=== PATIENT | male | born 1955 | race Caucasian/White ===

== ENCOUNTER 2022-10-24 09:11 | Inpatient (IN) | payer MEDICARE ==
[~2022-10-24] VITALS: Ht 170.2 cm; Wt 106.8 kg
[2022-10-24] VITALS (20 sets, daily range): BP systolic 96–125; BP diastolic 53–70
[2022-10-24 09:48] LABS: BASOPHILS # (AUTO) 0.1 (0.0-0.1); BASOPHILS % 0.3 % (0.0-1.0); EOSINOPHILS # (AUTO) 0.3 (0.0-0.4); EOSINOPHILS % 1.4 % (0.0-6.0); HEMATOCRIT 33.6 % (38.2-49.6); HEMOGLOBIN 11.4 g/dL (14.0-18.0); LYMPHOCYTES # (AUTO) 2.1 (1.0-3.2); LYMPHOCYTES % 11.4 % (18.0-39.1); MEAN CORPUSCULAR HEMOGLOBIN 28.4 pg (28-32); MEAN CORPUSCULAR HGB CONC 33.9 g/dL (31-35); MEAN CORPUSCULAR VOLUME 83.8 fL (81-99); MONOCYTES # (AUTO) 1.8 (0.2-0.8); MONOCYTES % 10.1 % (4.4-11.3); NEUTROPHILS # (AUTO) 13.9 (2.1-6.9); NEUTROPHILS % 75.8 % (38.7-80.0); PLATELET COUNT 513 x10e3/uL (140-360); RED BLOOD COUNT 4.01 x10e6/uL (4.3-5.7); RED CELL DISTRIBUTION WIDTH 13.5 % (11.7-14.4)
[2022-10-24] MEDS ORDERED: SODIUM CHLORIDE 0.9% 1000ML 1,000 ML IV STA (10:04)
[2022-10-24 10:09] LABS: ALANINE AMINOTRANSFERASE 20 IU/L (0-55); ALBUMIN 3.2 g/dL (3.5-5.0); ALBUMIN/GLOBULIN RATIO 0.7 (0.8-2.0); ALKALINE PHOSPHATASE 71 IU/L (40-150); ANION GAP 24.7 mmol/L (8-16); BLOOD UREA NITROGEN 32 mg/dL (7-26); BUN/CREATININE RATIO 10 (6-25); CALCIUM 9.5 mg/dL (8.4-10.2); CARBON DIOXIDE 17 mmol/L (22-29); CHLORIDE 92 mmol/L (98-107); CREATINE KINASE 310 IU/L (30-200); GLUCOSE 103 mg/dL (74-118); MAGNESIUM 1.8 MG/DL (1.3-2.1); POTASSIUM 3.7 mmol/L (3.5-5.1); SODIUM 130 mmol/L (136-145)
[2022-10-24 10:11] LABS: INR 1.13
[2022-10-24 10:17] LABS: ABG HCO3 22 mmol/L (22-26); ABG PCO2 34 mmHg (35-45); ABG PH 7.41 (7.35-7.45); ABG PO2 69 mmHg (80-105); ABG TCO2 23
[2022-10-24 10:25] LABS: B-TYPE NATRIURETIC PEPTIDE2 < 10.0 pg/mL (0-100)
[2022-10-24 10:39] LABS: SALICYLATE < 5.0 mg/dL (0-30)
[2022-10-24] MEDS ORDERED: LACTATED RINGER'S 1,000 ML INJ SCH (11:45)
[2022-10-24] MEDS ORDERED: ONDANSETRON HCL INJ 2MG/ML 2ML 2 MG/ML VIAL IV PRN (12:00)
[2022-10-24] MEDS ORDERED: ACETAMINOPHEN 325 MG TAB PO PRN (12:00)
[2022-10-24 12:01] LABS: AMPHETAMINES SCREEN,URINE NEGATIVE (NEGATIVE); BENZODIAZEPINES SCREEN,URINE NEGATIVE (NEGATIVE); PHENCYCLIDINE SCREEN,URINE NEGATIVE (NEGATIVE)
[2022-10-24 12:03] LABS: CLARITY,URINE CLEAR (CLEAR); COLOR,URINE YELLOW (YELLOW); LEUKOCYTE ESTERASE ,URINE NEGATIVE (NEGATIVE); NITRITE,URINE NEGATIVE (NEGATIVE)
[2022-10-24 12:04] LABS: KETONES,URINE NEGATIVE (NEGATIVE); PROTEIN,URINE DIPSTICK 1+ (NEGATIVE); URINE UROBILINOGEN 0.2 mg/dL (0.2 - 1)
[2022-10-24] MEDS ORDERED: NALOXONE HCL INJ 0.4 MG/ML AMP ONE (12:07)
[2022-10-24] MEDS ORDERED: NALOXONE HCL INJ 0.4 MG/ML AMP IV ONE (12:08)
[2022-10-24 12:13] LABS: BACTERIA,URINE FEW /HPF; EPITHELIAL CELLS,URINE FEW /LPF
[2022-10-24] MEDS ORDERED: DEXTROSE 50% SYRINGE 50 ML IV ONE (12:29)
[2022-10-24] MEDS ORDERED: GLUCAGON FOR INJ 1 MG VIAL ONE (12:31)
[2022-10-24] MEDS ORDERED: FENTANYL 2000MCG/NS 250 250 ML ONE (12:51)
[2022-10-24] MEDS ORDERED: PROPOFOL IV EMULSION 10MG/ML 100 ML ONE (12:51)
[2022-10-24] MEDS: PROPOFOL IV EMULSION 10MG/ML 100 ML IV PRN ×3 (13:02→21:52)
[2022-10-24] MEDS ORDERED: ETOMIDATE 2 MG/ML 10 ML INJ IV ONE (13:35)
[2022-10-24] MEDS ORDERED: SUCCINYLCHOLINE CHLORIDE 20 MG/ML 10ML VIAL ONE (13:35)
[2022-10-24] MEDS: FENTANYL 2000MCG/NS 250 250 ML IV PRN (13:52)
[2022-10-24 15:20] LABS: ABG HCO3 22 mmol/L (22-26); ABG PCO2 34 mmHg (35-45); ABG PH 7.42 (7.35-7.45); ABG PO2 132 mmHg (80-105); ABG TCO2 23
[2022-10-24 15:38] LABS: ALBUMIN 2.5 g/dL (3.5-5.0); ALBUMIN/GLOBULIN RATIO 0.7 (0.8-2.0); ANION GAP 19.8 mmol/L (8-16); CALCIUM 8.4 mg/dL (8.4-10.2); CREATININE, SERUM 3.31 mg/dL (0.72-1.25); POTASSIUM 3.8 mmol/L (3.5-5.1)
[2022-10-24 15:55] LABS: CREATINE KINASE MB 3.5 ng/mL (0-5.0)
[2022-10-24] MEDS ORDERED: LEVOFLOXACIN750 MG (16:00)
[2022-10-24] MEDS ORDERED: AMLODIPINE BESY10 MG PO (16:00)
[2022-10-24] MEDS ORDERED: ATORVASTATIN CA20 MG PO (16:01)
[2022-10-24] MEDS ORDERED: FENOFIBRATE145 MG PO (16:03)
[2022-10-24] MEDS ORDERED: LISINOPRIL10 MG PO (16:14)
[2022-10-24] MEDS ORDERED: ULTRAM 50MG50 MG PO (16:14)
[2022-10-24] MEDS ORDERED: HYDROCHLOROTH12.5 MG PO (16:14)
[2022-10-24] MEDS ORDERED: TADALAFIL10 MG (16:14)
[2022-10-24] MEDS ORDERED: FLUOXETINE HCL20 M1 PO (16:14)
[2022-10-24] MEDS ORDERED: FLOMAX0.4 MG PO (16:14)
[2022-10-24 16:24] LABS: BODY FLUID APPEARANCE SL.CLOUDY; BODY FLUID COLOR RED; BODY FLUID TYPE PLEURAL
[2022-10-24] MEDS ORDERED: HYDRALAZINE HCL 20 MG/ML VIAL IV PRN (16:30)
[2022-10-24] MEDS: SODIUM BICARBONATE 8.4% 50 ML in SODIUM CHLORIDE 0.45% 1,000 ML IV SCH (16:33)
[2022-10-24 17:00] LABS: RBC,BODY FLUID 8281 cells/uL; WBC,BODY FLUID 490 cells/uL
[2022-10-24 18:17] LABS: EOSINOPHILS,BODY FLUID 16 %; LYMPHOCYTES,BODY FLUID 19 %; MONO/MACROPHG,BODY FLUID 56 %; NEUTROPHILS,BODY FLUID 9 %
[2022-10-25] VITALS (25 sets, daily range): BP systolic 89–170; BP diastolic 51–72
[2022-10-25] MEDS: SODIUM BICARBONATE 8.4% 50 ML in SODIUM CHLORIDE 0.45% 1,000 ML IV SCH (01:54)
[2022-10-25] MEDS: PROPOFOL IV EMULSION 10MG/ML 100 ML IV PRN ×5 (04:27→21:45)
[2022-10-25 06:39] LABS: BASOPHILS % 0.2 % (0.0-1.0); EOSINOPHILS # (AUTO) 0.3 (0.0-0.4); EOSINOPHILS % 2.5 % (0.0-6.0); HEMATOCRIT 28.5 % (38.2-49.6); HEMOGLOBIN 9.5 g/dL (14.0-18.0); LYMPHOCYTES # (AUTO) 0.9 (1.0-3.2); LYMPHOCYTES % 8.4 % (18.0-39.1); MEAN CORPUSCULAR HEMOGLOBIN 27.7 pg (28-32); MEAN CORPUSCULAR HGB CONC 33.3 g/dL (31-35); MEAN CORPUSCULAR VOLUME 83.1 fL (81-99); MONOCYTES % 8.7 % (4.4-11.3); NEUTROPHILS # (AUTO) 8.7 (2.1-6.9); NEUTROPHILS % 79.1 % (38.7-80.0); PLATELET COUNT 376 x10e3/uL (140-360); RED BLOOD COUNT 3.43 x10e6/uL (4.3-5.7); RED CELL DISTRIBUTION WIDTH 13.6 % (11.7-14.4)
[2022-10-25 07:02] LABS: ALBUMIN 2.3 g/dL (3.5-5.0); ALBUMIN/GLOBULIN RATIO 0.6 (0.8-2.0); CALCIUM 8.3 mg/dL (8.4-10.2); CREATININE, SERUM 1.8 mg/dL (0.72-1.25)
[2022-10-25 07:21] LABS: ABG HCO3 27 mmol/L (22-26); ABG PCO2 42 mmHg (35-45); ABG PH 7.42 (7.35-7.45); ABG PO2 96 mmHg (80-105); ABG TCO2 28
[2022-10-25] MEDS ORDERED: POTASSIUM CHLORIDE 20MEQ/100ML 200 ML IV ONE ×2 (07:30→20:00)
[2022-10-25 07:59] LABS: CREATINE KINASE MB 3.8 ng/mL (0-5.0)
[2022-10-25] MEDS: ATORVASTATIN 40 MG TAB PO SCH (09:00)
[2022-10-25] MEDS: TAMSULOSIN HCL 0.4 MG CAP PO SCH (09:00)
[2022-10-25] MEDS: FENOFIBRATE 145 MG TAB PO SCH (09:00)
[2022-10-25] MEDS: HEPARIN SOD (PORCINE) 5,000 UNIT/ML VIAL SC SCH ×2 (09:24→20:22)
[2022-10-25] MEDS: LACTATED RINGER'S 1,000 ML INJ SCH ×2 (09:24→19:16)
[2022-10-25] MEDS ORDERED: SODIUM CHLORIDE 0.9% 1000ML 1,000 ML ONE (09:40)
[2022-10-25] MEDS: FENTANYL 2000MCG/NS 250 250 ML IV PRN (10:02)
[2022-10-25] MEDS ORDERED: MIDAZOLAM HCL 2 MG/2 ML VIAL IV ONE ×2 (11:30→13:00)
[2022-10-25] MEDS ORDERED: MIDAZOLAM HCL 2 MG/2 ML VIAL IV STA (12:40)
[2022-10-25] MEDS: MIDAZOLAM HCL 2 MG/2 ML VIAL IV PRN (13:09)
[2022-10-25 18:01] LABS: ALBUMIN/GLOBULIN RATIO 0.6 (0.8-2.0); CREATININE, SERUM 1.48 mg/dL (0.72-1.25)
[2022-10-26] VITALS (47 sets, daily range): BP systolic 93–141; BP diastolic 45–73
[2022-10-26] MEDS: FENTANYL 2000MCG/NS 250 250 ML IV PRN ×2 (00:13→17:27)
[2022-10-26] MEDS: PROPOFOL IV EMULSION 10MG/ML 100 ML IV PRN ×7 (01:32→22:11)
[2022-10-26] MEDS: LACTATED RINGER'S 1,000 ML INJ SCH (04:59)
[2022-10-26 06:30] LABS: BASOPHILS % 0.3 % (0.0-1.0); EOSINOPHILS # (AUTO) 0.3 (0.0-0.4); HEMATOCRIT 27.3 % (38.2-49.6); HEMOGLOBIN 8.9 g/dL (14.0-18.0); LYMPHOCYTES # (AUTO) 1.2 (1.0-3.2); LYMPHOCYTES % 7.9 % (18.0-39.1); MEAN CORPUSCULAR HEMOGLOBIN 27.8 pg (28-32); MEAN CORPUSCULAR HGB CONC 32.6 g/dL (31-35); MEAN CORPUSCULAR VOLUME 85.3 fL (81-99); MONOCYTES % 6.5 % (4.4-11.3); NEUTROPHILS # (AUTO) 12.2 (2.1-6.9); NEUTROPHILS % 81.9 % (38.7-80.0); PLATELET COUNT 368 x10e3/uL (140-360); RED CELL DISTRIBUTION WIDTH 14.1 % (11.7-14.4)
[2022-10-26 06:55] LABS: ALBUMIN 1.9 g/dL (3.5-5.0); ALBUMIN/GLOBULIN RATIO 0.5 (0.8-2.0); ANION GAP 15.1 mmol/L (8-16); CALCIUM 8.5 mg/dL (8.4-10.2); CREATININE, SERUM 1.08 mg/dL (0.72-1.25); POTASSIUM 4.1 mmol/L (3.5-5.1)
[2022-10-26 08:37] LABS: ABG PCO2 49 mmHg (35-45); ABG PH 7.33 (7.35-7.45); ABG PO2 67 mmHg (80-105)
[2022-10-26 08:38] LABS: ABG HCO3 26 mmol/L (22-26); ABG TCO2 27
[2022-10-26] MEDS: FENOFIBRATE 145 MG TAB PO SCH (09:00)
[2022-10-26] MEDS: ATORVASTATIN 40 MG TAB PO SCH (09:00)
[2022-10-26] MEDS: TAMSULOSIN HCL 0.4 MG CAP PO SCH (09:00)
[2022-10-26] MEDS ORDERED: SODIUM CHLORIDE 0.9% 1000ML 1,000 ML ONE (11:03)
[2022-10-26] MEDS ORDERED: SODIUM CHLORIDE 0.9% 1000ML 1,000 ML IV ONE (21:00)
[2022-10-27] VITALS (83 sets, daily range): BP systolic 91–142; BP diastolic 48–73
[2022-10-27] MEDS: PROPOFOL IV EMULSION 10MG/ML 100 ML IV PRN ×7 (01:13→21:24)
[2022-10-27] MEDS: VASOPRESSIN 60 UNIT in DEXTROSE 5% 50ML 57 ML IV SCH (02:00)
[2022-10-27 06:42] LABS: BASOPHILS # (AUTO) 0.1 (0.0-0.1); BASOPHILS % 0.4 % (0.0-1.0); EOSINOPHILS # (AUTO) 0.4 (0.0-0.4); EOSINOPHILS % 2.2 % (0.0-6.0); HEMATOCRIT 26.6 % (38.2-49.6); HEMOGLOBIN 8.3 g/dL (14.0-18.0); LYMPHOCYTES % 5.4 % (18.0-39.1); MEAN CORPUSCULAR HEMOGLOBIN 27.5 pg (28-32); MEAN CORPUSCULAR HGB CONC 31.2 g/dL (31-35); MEAN CORPUSCULAR VOLUME 88.1 fL (81-99); MONOCYTES # (AUTO) 1.2 (0.2-0.8); MONOCYTES % 6.7 % (4.4-11.3); NEUTROPHILS # (AUTO) 14.5 (2.1-6.9); NEUTROPHILS % 82.4 % (38.7-80.0); PLATELET COUNT 394 x10e3/uL (140-360); RED BLOOD COUNT 3.02 x10e6/uL (4.3-5.7); RED CELL DISTRIBUTION WIDTH 14.6 % (11.7-14.4)
[2022-10-27 07:05] LABS: ALBUMIN 1.8 g/dL (3.5-5.0); ALBUMIN/GLOBULIN RATIO 0.4 (0.8-2.0); ANION GAP 17.3 mmol/L (8-16); CALCIUM 8.2 mg/dL (8.4-10.2); CREATININE, SERUM 2.18 mg/dL (0.72-1.25); POTASSIUM 4.3 mmol/L (3.5-5.1)
[2022-10-27 08:22] LABS: ABG PCO2 41 mmHg (35-45); ABG PH 7.37 (7.35-7.45)
[2022-10-27 08:23] LABS: ABG HCO3 24 mmol/L (22-26); ABG PO2 102 mmHg (80-105); ABG TCO2 25
[2022-10-27] MEDS: ALBUMIN 25% 25GM 100ML 100 ML IV SCH ×3 (08:29→21:00)
[2022-10-27] MEDS ORDERED: ALBUMIN 25% 25GM 100ML 0.25 GM/ML BTL IV SCH (08:30)
[2022-10-27] MEDS: FENOFIBRATE 145 MG TAB PO SCH (08:41)
[2022-10-27] MEDS: FAMOTIDINE 20 MG/2 ML VIAL IV SCH ×2 (08:41→16:40)
[2022-10-27] MEDS: DOCUSATE SODIUM LIQD 100 MG/10 ML UDC NG SCH (08:41)
[2022-10-27] MEDS: ATORVASTATIN 40 MG TAB PO SCH (08:42)
[2022-10-27] MEDS: TAMSULOSIN HCL 0.4 MG CAP PO SCH (08:44)
[2022-10-27] MEDS ORDERED: FUROSEMIDE INJ 10 MG/ML 4 ML VIAL IV ONE (09:00)
[2022-10-27] MEDS: FENTANYL 2000MCG/NS 250 250 ML IV PRN ×2 (09:51→21:24)
[2022-10-27] MEDS: HEPARIN SOD (PORCINE) 5,000 UNIT/ML VIAL SC SCH ×2 (09:56→21:23)
[2022-10-27] MEDS ORDERED: SODIUM CHLORIDE 0.9% 1000ML 1,000 ML IV ONE (13:30)
[2022-10-27] MEDS: CEFTRIAXONE 2 GM in SODIUM CHLORIDE 0.9% 100 ML IV SCH (13:33)
[2022-10-27 14:44] LABS: HIV 1&2 AB SCREEN NON-REACTIVE (NONREACTIVE)
[2022-10-27] MEDS ORDERED: ALBUMIN 5% 0.05 GM/ML BTL IV ONE (21:00)
[2022-10-27] MEDS ORDERED: SODIUM CHLORIDE 0.9% IV ONE (23:45)
[2022-10-27] MEDS ORDERED: ALBUMIN IV ONE (23:45)
[2022-10-28] VITALS (66 sets, daily range): BP systolic 102–158; BP diastolic 48–65
[2022-10-28] MEDS: PROPOFOL IV EMULSION 10MG/ML 100 ML IV PRN ×7 (01:22→21:44)
[2022-10-28] MEDS ORDERED: BUMETANIDE INJ 0.25MG/ML 4ML VIAL IV ONE ×3 (02:00→16:45)
[2022-10-28] MEDS: VASOPRESSIN 60 UNIT in DEXTROSE 5% 50ML 57 ML IV SCH (02:00)
[2022-10-28 06:12] LABS: BASOPHILS % 0.1 % (0.0-1.0); EOSINOPHILS # (AUTO) 0.2 (0.0-0.4); EOSINOPHILS % 1.6 % (0.0-6.0); HEMATOCRIT 23.9 % (38.2-49.6); HEMOGLOBIN 7.5 g/dL (14.0-18.0); LYMPHOCYTES # (AUTO) 0.8 (1.0-3.2); LYMPHOCYTES % 6.1 % (18.0-39.1); MEAN CORPUSCULAR HEMOGLOBIN 27.9 pg (28-32); MEAN CORPUSCULAR HGB CONC 31.4 g/dL (31-35); MEAN CORPUSCULAR VOLUME 88.8 fL (81-99); MONOCYTES # (AUTO) 0.4 (0.2-0.8); MONOCYTES % 3.3 % (4.4-11.3); NEUTROPHILS # (AUTO) 11.4 (2.1-6.9); NEUTROPHILS % 84.5 % (38.7-80.0); PLATELET COUNT 361 x10e3/uL (140-360); RED BLOOD COUNT 2.69 x10e6/uL (4.3-5.7); RED CELL DISTRIBUTION WIDTH 15.3 % (11.7-14.4)
[2022-10-28 06:37] LABS: ALBUMIN 2.5 g/dL (3.5-5.0); ALBUMIN/GLOBULIN RATIO 0.7 (0.8-2.0); ANION GAP 18.2 mmol/L (8-16); CALCIUM 8.5 mg/dL (8.4-10.2); CREATININE, SERUM 3.53 mg/dL (0.72-1.25); POTASSIUM 4.2 mmol/L (3.5-5.1)
[2022-10-28] MEDS ORDERED: SODIUM CHLORIDE 0.9% 250ML 250 ML IV PRN (07:00)
[2022-10-28 09:01] LABS: ABG PCO2 48 mmHg (35-45); ABG PH 7.28 (7.35-7.45)
[2022-10-28 09:02] LABS: ABG HCO3 22 mmol/L (22-26); ABG PO2 81 mmHg (80-105); ABG TCO2 24
[2022-10-28] MEDS: DOCUSATE SODIUM LIQD 100 MG/10 ML UDC NG SCH (09:48)
[2022-10-28] MEDS: HEPARIN SOD (PORCINE) 5,000 UNIT/ML VIAL SC SCH ×2 (09:48→20:18)
[2022-10-28] MEDS: TAMSULOSIN HCL 0.4 MG CAP PO SCH (09:48)
[2022-10-28] MEDS: FAMOTIDINE 20 MG/2 ML VIAL IV SCH ×2 (09:48→17:32)
[2022-10-28] MEDS: FENOFIBRATE 145 MG TAB PO SCH (09:48)
[2022-10-28] MEDS: ATORVASTATIN 40 MG TAB PO SCH (09:49)
[2022-10-28] MEDS ORDERED: SODIUM CHLORIDE 0.9% 250ML 250 ML ONE (11:24)
[2022-10-28] MEDS: BUMETANIDE 10 MG in SODIUM CHLORIDE 0.9% 60 ML IV SCH ×2 (14:00→20:16)
[2022-10-28] MEDS: SODIUM BICARBONATE 8.4% SYRING 100 ML in DEXTROSE 5% 1,000 ML IV SCH (14:00)
[2022-10-28] MEDS: CEFTRIAXONE 2 GM in SODIUM CHLORIDE 0.9% 100 ML IV SCH (17:32)
[2022-10-28] MEDS: FENTANYL 2000MCG/NS 250 250 ML IV PRN (18:28)
[2022-10-28] MEDS: MIDAZOLAM HCL 2 MG/2 ML VIAL IV PRN (20:16)
[2022-10-29] VITALS (92 sets, daily range): BP systolic 95–171; BP diastolic 47–90
[2022-10-29 00:25] LABS: % IRON SATURATION 13 % (15-50); IRON 17 ug/dL (65-175); TOTAL IRON BINDING CAPACITY 136 ug/dL (261-478); TRANSFERRIN 97 mg/dL (174-364)
[2022-10-29] MEDS: PROPOFOL IV EMULSION 10MG/ML 100 ML IV PRN ×7 (00:43→20:53)
[2022-10-29] MEDS: BUMETANIDE 10 MG in SODIUM CHLORIDE 0.9% 60 ML IV SCH ×4 (01:45→18:24)
[2022-10-29] MEDS: VASOPRESSIN 60 UNIT in DEXTROSE 5% 50ML 57 ML IV SCH (02:00)
[2022-10-29] MEDS: METOCLOPRAMIDE HCL 10 MG/2ML VIAL IV SCH ×3 (05:19→17:29)
[2022-10-29] MEDS: MIDAZOLAM HCL 2 MG/2 ML VIAL IV PRN (05:20)
[2022-10-29 06:02] LABS: BASOPHILS % 0.3 % (0.0-1.0); EOSINOPHILS # (AUTO) 0.4 (0.0-0.4); EOSINOPHILS % 2.5 % (0.0-6.0); HEMATOCRIT 28.8 % (38.2-49.6); HEMOGLOBIN 9.2 g/dL (14.0-18.0); LYMPHOCYTES # (AUTO) 0.7 (1.0-3.2); LYMPHOCYTES % 4.6 % (18.0-39.1); MEAN CORPUSCULAR HEMOGLOBIN 27.8 pg (28-32); MEAN CORPUSCULAR HGB CONC 31.9 g/dL (31-35); MONOCYTES # (AUTO) 0.6 (0.2-0.8); MONOCYTES % 4.4 % (4.4-11.3); NEUTROPHILS # (AUTO) 11.7 (2.1-6.9); NEUTROPHILS % 82.3 % (38.7-80.0); PLATELET COUNT 366 x10e3/uL (140-360); RED BLOOD COUNT 3.31 x10e6/uL (4.3-5.7); RED CELL DISTRIBUTION WIDTH 15.2 % (11.7-14.4)
[2022-10-29 06:37] LABS: ALBUMIN 2.1 g/dL (3.5-5.0); ALBUMIN/GLOBULIN RATIO 0.5 (0.8-2.0); ANION GAP 19.2 mmol/L (8-16); CALCIUM 8.4 mg/dL (8.4-10.2); CREATININE, SERUM 3.9 mg/dL (0.72-1.25); POTASSIUM 4.2 mmol/L (3.5-5.1)
[2022-10-29 06:39] LABS: ABG HCO3 23 mmol/L (22-26); ABG PCO2 48 mmHg (35-45); ABG PH 7.29 (7.35-7.45); ABG PO2 71 mmHg (80-105); ABG TCO2 25
[2022-10-29] MEDS ORDERED: SODIUM BICARBONATE 8.4% SYRING 0 ML ONE (08:37)
[2022-10-29] MEDS: FENOFIBRATE 145 MG TAB PO SCH (09:22)
[2022-10-29] MEDS: FAMOTIDINE 20 MG/2 ML VIAL IV SCH ×2 (09:22→17:29)
[2022-10-29] MEDS: TAMSULOSIN HCL 0.4 MG CAP PO SCH (09:22)
[2022-10-29] MEDS: DOCUSATE SODIUM LIQD 100 MG/10 ML UDC NG SCH (09:22)
[2022-10-29] MEDS: HEPARIN SOD (PORCINE) 5,000 UNIT/ML VIAL SC SCH ×2 (09:23→21:22)
[2022-10-29] MEDS: SODIUM BICARBONATE 8.4% SYRING 100 ML in DEXTROSE 5% 1,000 ML IV SCH (09:23)
[2022-10-29] MEDS: FENTANYL 2000MCG/NS 250 250 ML IV PRN ×2 (10:17→21:22)
[2022-10-29] MEDS: IRON SUCROSE 100 MG in SODIUM CHLORIDE 0.9% 100 ML IV SCH (10:41)
[2022-10-29 11:52] LABS: ABG PH 7.36 (7.35-7.45)
[2022-10-29 11:53] LABS: ABG HCO3 23 mmol/L (22-26); ABG PCO2 40 mmHg (35-45); ABG PO2 55 mmHg (80-105); ABG TCO2 24
[2022-10-29] MEDS ORDERED: SODIUM CHLORIDE 0.9% 0 ML ONE (12:59)
[2022-10-29] MEDS: CEFTRIAXONE 2 GM in SODIUM CHLORIDE 0.9% 100 ML IV SCH (13:03)
[2022-10-29] MEDS ORDERED: HEPARIN SOD (PORCINE) 1000 UNIT/ML 30ML ONE (20:38)
[2022-10-29] MEDS ORDERED: HEPARIN SOD (PORCINE) 1000 UNIT/ML SDV ONE (20:38)
[2022-10-30] VITALS (90 sets, daily range): BP systolic 95–181; BP diastolic 46–84
[2022-10-30] MEDS: PROPOFOL IV EMULSION 10MG/ML 100 ML IV PRN ×8 (00:14→20:05)
[2022-10-30] MEDS: BUMETANIDE 10 MG in SODIUM CHLORIDE 0.9% 60 ML IV SCH ×6 (00:16→21:46)
[2022-10-30] MEDS: METOCLOPRAMIDE HCL 10 MG/2ML VIAL IV SCH ×4 (00:17→17:39)
[2022-10-30] MEDS: VASOPRESSIN 60 UNIT in DEXTROSE 5% 50ML 57 ML IV SCH (02:00)
[2022-10-30 05:39] LABS: BASOPHILS % 0.2 % (0.0-1.0); EOSINOPHILS # (AUTO) 0.2 (0.0-0.4); EOSINOPHILS % 1.8 % (0.0-6.0); HEMATOCRIT 27.8 % (38.2-49.6); HEMOGLOBIN 9.1 g/dL (14.0-18.0); LYMPHOCYTES # (AUTO) 0.5 (1.0-3.2); LYMPHOCYTES % 4.1 % (18.0-39.1); MEAN CORPUSCULAR HEMOGLOBIN 28.1 pg (28-32); MEAN CORPUSCULAR HGB CONC 32.7 g/dL (31-35); MEAN CORPUSCULAR VOLUME 85.8 fL (81-99); MONOCYTES # (AUTO) 0.7 (0.2-0.8); MONOCYTES % 5.5 % (4.4-11.3); NEUTROPHILS # (AUTO) 9.8 (2.1-6.9); NEUTROPHILS % 81.7 % (38.7-80.0); PLATELET COUNT 368 x10e3/uL (140-360); RED BLOOD COUNT 3.24 x10e6/uL (4.3-5.7)
[2022-10-30 05:59] LABS: ALBUMIN 1.9 g/dL (3.5-5.0); ALBUMIN/GLOBULIN RATIO 0.4 (0.8-2.0); ANION GAP 19.7 mmol/L (8-16); CALCIUM 8.1 mg/dL (8.4-10.2); CREATININE, SERUM 3.41 mg/dL (0.72-1.25); POTASSIUM 3.7 mmol/L (3.5-5.1)
[2022-10-30 06:45] LABS: ABG HCO3 26 mmol/L (22-26); ABG PCO2 47 mmHg (35-45); ABG PH 7.34 (7.35-7.45); ABG PO2 85 mmHg (80-105); ABG TCO2 27
[2022-10-30] MEDS: SODIUM BICARBONATE 8.4% SYRING 100 ML in DEXTROSE 5% 1,000 ML IV SCH ×2 (07:29→21:42)
[2022-10-30] MEDS: IRON SUCROSE 100 MG in SODIUM CHLORIDE 0.9% 100 ML IV SCH (07:30)
[2022-10-30] MEDS: FENTANYL 2000MCG/NS 250 250 ML IV PRN ×2 (07:31→17:40)
[2022-10-30] MEDS ORDERED: HEPARIN SOD (PORCINE) 1000 UNIT/ML SDV IV PRN ×3 (09:00→10:15)
[2022-10-30] MEDS ORDERED: HEPARIN SOD (PORCINE) 1000 UNIT/ML SDV ONE (09:17)
[2022-10-30] MEDS ORDERED: ALBUMIN 25% 12.5GM 50ML 50 ML IV ONE (09:18)
[2022-10-30] MEDS ORDERED: SODIUM CHLORIDE 0.9% 1000ML 2,000 ML ONE (09:19)
[2022-10-30] MEDS: DOCUSATE SODIUM LIQD 100 MG/10 ML UDC NG SCH (09:29)
[2022-10-30] MEDS: FENOFIBRATE 145 MG TAB PO SCH (09:29)
[2022-10-30] MEDS: TAMSULOSIN HCL 0.4 MG CAP PO SCH (09:30)
[2022-10-30] MEDS: FAMOTIDINE 20 MG/2 ML VIAL IV SCH ×2 (09:30→17:39)
[2022-10-30] MEDS: HEPARIN SOD (PORCINE) 5,000 UNIT/ML VIAL SC SCH ×2 (09:31→21:42)
[2022-10-30] MEDS ORDERED: ALBUMIN 25% 12.5GM 0.25 GM/ML BTL IV PRN (10:15)
[2022-10-30 10:52] LABS: BAND NEUTROPHILS % (MANUAL) 2 %; EOSINOPHILS % (MANUAL) 2 % (0-7); LYMPHOCYTES % (MANUAL) 9 % (19-48); MONOCYTES % (MANUAL) 9 % (3.4-9.0); NEUTROPHILS % (MANUAL) 78 % (40-74); PLATELET ESTIMATE ADEQUATE; PLATELET MORPHOLOGY COMMENT NORMAL
[2022-10-30] MEDS: CEFTRIAXONE 2 GM in SODIUM CHLORIDE 0.9% 100 ML IV SCH (12:21)
[2022-10-30] MEDS ORDERED: VECURONIUM BROMIDE FOR INJ 20 MG VIAL IV STA (17:21)
[2022-10-30] MEDS: MIDAZOLAM HCL 2 MG/2 ML VIAL IV PRN (19:34)
[2022-10-31] VITALS (46 sets, daily range): BP systolic 100–182; BP diastolic 50–87
[2022-10-31] MEDS: METOCLOPRAMIDE HCL 10 MG/2ML VIAL IV SCH ×5 (01:10→23:59)
[2022-10-31] MEDS: BUMETANIDE 10 MG in SODIUM CHLORIDE 0.9% 60 ML IV SCH ×6 (01:11→23:12)
[2022-10-31] MEDS: VASOPRESSIN 60 UNIT in DEXTROSE 5% 50ML 57 ML IV SCH (02:00)
[2022-10-31] MEDS: PROPOFOL IV EMULSION 10MG/ML 100 ML IV PRN ×8 (02:40→20:54)
[2022-10-31] MEDS: FENTANYL 2000MCG/NS 250 250 ML IV PRN ×3 (02:46→23:17)
[2022-10-31 06:33] LABS: BASOPHILS # (AUTO) 0.1 (0.0-0.1); BASOPHILS % 0.4 % (0.0-1.0); EOSINOPHILS # (AUTO) 0.3 (0.0-0.4); EOSINOPHILS % 1.7 % (0.0-6.0); HEMATOCRIT 31.8 % (38.2-49.6); HEMOGLOBIN 10.2 g/dL (14.0-18.0); LYMPHOCYTES # (AUTO) 0.9 (1.0-3.2); LYMPHOCYTES % 4.2 % (18.0-39.1); MEAN CORPUSCULAR HEMOGLOBIN 28.4 pg (28-32); MEAN CORPUSCULAR HGB CONC 32.1 g/dL (31-35); MEAN CORPUSCULAR VOLUME 88.6 fL (81-99); MONOCYTES # (AUTO) 1.2 (0.2-0.8); MONOCYTES % 5.9 % (4.4-11.3); NEUTROPHILS # (AUTO) 16.3 (2.1-6.9); NEUTROPHILS % 79.7 % (38.7-80.0); PLATELET COUNT 448 x10e3/uL (140-360); RED BLOOD COUNT 3.59 x10e6/uL (4.3-5.7); RED CELL DISTRIBUTION WIDTH 14.9 % (11.7-14.4)
[2022-10-31 07:15] LABS: ABG HCO3 33 mmol/L (22-26); ABG PCO2 46 mmHg (35-45); ABG PH 7.46 (7.35-7.45); ABG PO2 69 mmHg (80-105); ABG TCO2 34
[2022-10-31 07:29] LABS: ALBUMIN 2.2 g/dL (3.5-5.0); ALBUMIN/GLOBULIN RATIO 0.4 (0.8-2.0); ANION GAP 21.5 mmol/L (8-16); CALCIUM 8.9 mg/dL (8.4-10.2); CREATININE, SERUM 2.01 mg/dL (0.72-1.25); POTASSIUM 3.5 mmol/L (3.5-5.1)
[2022-10-31] MEDS: FENOFIBRATE 145 MG TAB PO SCH (08:18)
[2022-10-31] MEDS: TAMSULOSIN HCL 0.4 MG CAP PO SCH (08:18)
[2022-10-31] MEDS: IRON SUCROSE 100 MG in SODIUM CHLORIDE 0.9% 100 ML IV SCH (08:18)
[2022-10-31] MEDS: DOCUSATE SODIUM LIQD 100 MG/10 ML UDC NG SCH (08:18)
[2022-10-31] MEDS: FAMOTIDINE 20 MG/2 ML VIAL IV SCH ×2 (08:19→16:07)
[2022-10-31] MEDS: HEPARIN SOD (PORCINE) 5,000 UNIT/ML VIAL SC SCH ×2 (08:20→20:07)
[2022-10-31] MEDS ORDERED: Vancomycin IV 1 GM in SODIUM CHLORIDE 0.9% 250ML 250 ML IV ONE (08:30)
[2022-10-31 09:05] LABS: EOSINOPHILS % (MANUAL) 2 % (0-7); LYMPHOCYTES % (MANUAL) 6 % (19-48); METAMYELOCYTES % (MANUAL) 2 % (0-0); MONOCYTES % (MANUAL) 6 % (3.4-9.0); MYELOCYTES % (MANUAL) 3 % (0-0); NEUTROPHILS % (MANUAL) 81 % (40-74); PLATELET ESTIMATE ADEQUATE; PLATELET MORPHOLOGY COMMENT NORMAL; RBC MORPHOLOGY COMMENT NORMAL
[2022-10-31] MEDS ORDERED: SODIUM CHLORIDE 0.9% 1000ML 1,000 ML ONE (13:36)
[2022-10-31 16:15] LABS: ABG PH 7.42 (7.35-7.45)
[2022-10-31 16:16] LABS: ABG HCO3 33 mmol/L (22-26); ABG PCO2 51 mmHg (35-45); ABG PO2 106 mmHg (80-105); ABG TCO2 35
[2022-10-31] MEDS: SODIUM BICARBONATE 8.4% SYRING 100 ML in DEXTROSE 5% 1,000 ML IV SCH (21:22)
[2022-11-01] VITALS (39 sets, daily range): BP systolic 88–140; BP diastolic 42–82
[2022-11-01] MEDS: VASOPRESSIN 60 UNIT in DEXTROSE 5% 50ML 57 ML IV SCH (01:09)
[2022-11-01] MEDS: PROPOFOL IV EMULSION 10MG/ML 100 ML IV PRN ×6 (03:01→21:47)
[2022-11-01] MEDS ORDERED: MAGNESIUM HYDROXIDE 30 ML UDC PO STA (03:18)
[2022-11-01] MEDS: BUMETANIDE 10 MG in SODIUM CHLORIDE 0.9% 60 ML IV SCH ×3 (04:33→15:01)
[2022-11-01] MEDS: METOCLOPRAMIDE HCL 10 MG/2ML VIAL IV SCH ×3 (05:24→17:31)
[2022-11-01 06:42] LABS: BASOPHILS # (AUTO) 0.1 (0.0-0.1); BASOPHILS % 0.2 % (0.0-1.0); EOSINOPHILS # (AUTO) 0.6 (0.0-0.4); EOSINOPHILS % 3.1 % (0.0-6.0); HEMATOCRIT 27.8 % (38.2-49.6); LYMPHOCYTES # (AUTO) 0.9 (1.0-3.2); LYMPHOCYTES % 4.5 % (18.0-39.1); MEAN CORPUSCULAR HEMOGLOBIN 28.6 pg (28-32); MEAN CORPUSCULAR HGB CONC 32.4 g/dL (31-35); MEAN CORPUSCULAR VOLUME 88.3 fL (81-99); MONOCYTES % 5.1 % (4.4-11.3); NEUTROPHILS # (AUTO) 15.8 (2.1-6.9); NEUTROPHILS % 78.1 % (38.7-80.0); PLATELET COUNT 358 x10e3/uL (140-360); RED BLOOD COUNT 3.15 x10e6/uL (4.3-5.7); RED CELL DISTRIBUTION WIDTH 15.3 % (11.7-14.4)
[2022-11-01 07:19] LABS: ANION GAP 15.4 mmol/L (8-16); CALCIUM 8.8 mg/dL (8.4-10.2); CREATININE, SERUM 2.46 mg/dL (0.72-1.25); POTASSIUM 3.4 mmol/L (3.5-5.1)
[2022-11-01 07:31] LABS: ALBUMIN 1.7 g/dL (3.5-5.0)
[2022-11-01 07:33] LABS: ALBUMIN/GLOBULIN RATIO 0.3 (0.8-2.0)
[2022-11-01 08:26] LABS: ABG HCO3 34 mmol/L (22-26); ABG PCO2 53 mmHg (35-45); ABG PH 7.41 (7.35-7.45); ABG PO2 133 mmHg (80-105); ABG TCO2 36
[2022-11-01] MEDS: FENOFIBRATE 145 MG TAB PO SCH (08:40)
[2022-11-01] MEDS: IRON SUCROSE 100 MG in SODIUM CHLORIDE 0.9% 100 ML IV SCH (08:40)
[2022-11-01] MEDS: DOCUSATE SODIUM LIQD 100 MG/10 ML UDC NG SCH (08:41)
[2022-11-01] MEDS: TAMSULOSIN HCL 0.4 MG CAP PO SCH (08:41)
[2022-11-01] MEDS ORDERED: FOLIC ACID 1 MG TAB PO SCH (09:00)
[2022-11-01 09:29] LABS: EOSINOPHILS % (MANUAL) 2 % (0-7); LYMPHOCYTES % (MANUAL) 3 % (19-48); MONOCYTES % (MANUAL) 9 % (3.4-9.0); NEUTROPHILS % (MANUAL) 86 % (40-74); PLATELET ESTIMATE ADEQUATE; PLATELET MORPHOLOGY COMMENT NORMAL; RBC MORPHOLOGY COMMENT NORMAL
[2022-11-01] MEDS: FENTANYL 2000MCG/NS 250 250 ML IV PRN (10:14)
[2022-11-01] MEDS: ALBUTEROL SULF 0.083% NEB SOLN 3 ML NEB NEB PRN (11:05)
[2022-11-01] MEDS ORDERED: METHYLPREDNISOLONE SOD SUCC 40 MG/ML VIAL 1ML IV SCH (14:00)
[2022-11-01 14:52] LABS: ABG HCO3 31 mmol/L (22-26); ABG PCO2 45 mmHg (35-45); ABG PH 7.45 (7.35-7.45); ABG PO2 67 mmHg (80-105); ABG TCO2 33
[2022-11-01] MEDS ORDERED: SODIUM CHLORIDE 0.9% 1000ML 2,000 ML ONE (16:02)
[2022-11-01] MEDS ORDERED: FENTANYL 2000MCG/NS 250 250 ML IV PRN (16:45)
[2022-11-01] MEDS ORDERED: SODIUM CHLORIDE 0.9% 1000ML 2,000 ML IV PRN (17:00)
[2022-11-01] MEDS ORDERED: SODIUM BICARBONATE 8.4% SYRING 100 ML in DEXTROSE 5% 1,000 ML IV SCH (19:30)
[2022-11-01] MEDS ORDERED: FAMOTIDINE 20 MG/2 ML VIAL IV SCH (21:00)
[2022-11-02] VITALS (9 sets, daily range): BP systolic 90–155; BP diastolic 45–74
[2022-11-02] MEDS: MIDAZOLAM HCL 2 MG/2 ML VIAL IV PRN (00:46)
[2022-11-02] MEDS: BUMETANIDE 10 MG in SODIUM CHLORIDE 0.9% 60 ML IV SCH (00:52)
[2022-11-02] MEDS: METOCLOPRAMIDE HCL 10 MG/2ML VIAL IV SCH (00:56)
[2022-11-02] MEDS: ALBUTEROL SULF 0.083% NEB SOLN 3 ML NEB NEB PRN (01:15)
[2022-11-02] MEDS ORDERED: VECURONIUM BROMIDE FOR INJ 20 MG VIAL IV STA (02:59)
[2022-11-02] MEDS ORDERED: VECURONIUM BROMIDE FOR INJ 20 MG VIAL ONE (03:03)
[2022-11-02] MEDS: PROPOFOL IV EMULSION 10MG/ML 100 ML IV PRN (03:15)
[2022-11-02] MEDS ORDERED: ROCURONIUM 1250MG/NS 250 250 ML IV PRN (04:00)
[2022-11-02] MEDS ORDERED: ATROPINE SULFATE 0.1 MG/ML 10ML SYR ONE (04:02)
[2022-11-02 04:51] LABS: ABG HCO3 23 mmol/L (22-26); ABG PCO2 61 mmHg (35-45); ABG PH 7.18 (7.35-7.45); ABG PO2 68 mmHg (80-105)
[2022-11-02 04:52] LABS: ABG TCO2 25
[2022-11-02] MEDS ORDERED: EPINEPHRINE HCL SYRINGE ONE (12:19)
[2022-11-02] MEDS ORDERED: SODIUM BICARBONATE 8.4% INJ 50 ML SYR ONE (12:19)
== END 2022-11-02 09:43 | disposition expired | DRG 871 ==
LOC: ER 09:17 → ERHOLD 11:18 → ICU 14:30
PROVIDERS: ADMIT Internal Medicine; ATTEND Internal Medicine
PROC: 5A1945Z Respiratory Ventilation, 24-96 Consecutive Hours (ICD-10-PCS; principal; 2022-10-24)
PROC: 0BH18EZ Insertion of Endotracheal Airway into Trachea, Via Natural or Artificial Opening Endoscopic (ICD-10-PCS; 2022-10-24)
PROC: 3E04329 Introduction of Other Anti-infective into Central Vein, Percutaneous Approach (ICD-10-PCS; 2022-10-24)
PROC: 0W9930Z Drainage of Right Pleural Cavity with Drainage Device, Percutaneous Approach (ICD-10-PCS; 2022-10-26)
PROC: 02HV33Z Insertion of Infusion Device into Superior Vena Cava, Percutaneous Approach (ICD-10-PCS; 2022-10-29)
DX: A41.9 Sepsis, unspecified organism (principal); G93.41 Metabolic encephalopathy; J18.9 Pneumonia, unspecified organism; J86.9 Pyothorax without fistula; N17.0 Acute kidney failure with tubular necrosis; J96.01 Acute respiratory failure with hypoxia; M62.82 Rhabdomyolysis; E87.1 Hypo-osmolality and hyponatremia; E87.20 Acidosis, unspecified; R65.20 Severe sepsis without septic shock; F41.9 Anxiety disorder, unspecified; F32.A Depression, unspecified; E78.5 Hyperlipidemia, unspecified; M54.9 Dorsalgia, unspecified; G89.29 Other chronic pain; N40.0 Benign prostatic hyperplasia without lower urinary tract symptoms; Z20.822 Contact with and (suspected) exposure to COVID-19; E86.0 Dehydration
CPT/HCPCS: 31500; 32555; 32557; 36415; 36556; 36600; 51700; 70450; 71045; 71250; 74018; 74176; 74470; 76705; 76770; 76937; 76942; 80053; 80307; 80320; 80329; 81001; 82550; 82553; 82607; 82746; 82805; 82948; 83540; 83605; 83615; 83735; 83880; 84157; 84300; 84466; 84484; 85025; 85045; 85379; 85610; 85730; 86631; 86704; 86706; 86738; 86850; 86900; 86920; 87040; 87070; 87086; 87205; 87340; 87390; 87449; 89051; 92950; 93005; 93306; 94003; 94640; 94799; 99285; G0433; G0435; J0171; J0330; J0696; J1610; J1644; J1756; J1940; J2185; J2250; J2310; J2405; J2543; J2765; J3480; J7030; J7040; J7050; J7070; J7799; P9016; P9047